=== PATIENT | female | born 1990 | race Caucasian/White ===

== ENCOUNTER → 2016-03-30 | Outpatient (CLI) | payer BC ==
[2016-03-30 19:31] LABS: BASO # 0.1 K/mm3 (0.0-0.2); BASO % 0.7 % (0.0-1.0); EOS # 0.1 K/mm3 (0.0-0.50); LARGE UNSTAINED CELL # 0.1 K/mm3 (0.0-0.4); LARGE UNSTAINED CELL % 0.8 % (0.0-4.0); LYMPH # 1.7 K/mm3 (1.5-6.5); LYMPH % 13.3 % (24.0-44.0); MEAN CORPUSCULAR HEMOGLOBIN 29.3 pg (27.0-33.0); MEAN CORPUSCULAR VOLUME 86.3 fl (80.0-96.0); MONO # 0.6 K/mm3 (0.0-0.8); MONO % 5.1 % (0.0-5.0); NEUTROPHILS # 9.6 K/mm3 (1.8-7.7); NEUTROPHILS % 79.1 % (36.0-66.0); PLATELET COUNT, AUTOMATED 290 k/mm3 (150-450); RED CELL DISTRIBUTION WIDTH 13.6 % (11.5-14.5); WHITE BLOOD COUNT 12.1 K/mm3 (4.0-10.0)
[2016-03-31 08:40] LABS: CONTROL LINE INT CTR LINE PRESENT; HIV SCRN NEGATIVE (NEGATIVE); HIV SCRN1 NEGATIVE (NEGATIVE)
[2016-04-01 10:01] LABS: HBsAg Prenatal NEGATIVE (NEGATIVE)
== END ==
LOC: M SMT 13:47
PROVIDERS: ATTEND Advanced Practice Midwife
DX: Z34.81 Encounter for supervision of other normal pregnancy, first trimester (principal)

== ENCOUNTER → 2016-04-27 | Outpatient (REF) | payer BC | LOC: M LAB REF 16:52 | PROVIDERS: ATTEND Advanced Practice Midwife | DX: Z34.82 Encounter for supervision of other normal pregnancy, second trimester (principal) ==

== ENCOUNTER → 2016-05-25 | Outpatient (REF) | payer BC | LOC: M LAB REF 17:26 | PROVIDERS: ATTEND Obstetrics & Gynecology | DX: Z34.82 Encounter for supervision of other normal pregnancy, second trimester (principal) ==

== ENCOUNTER → 2016-09-14 | Outpatient (REF) | payer BC ==
[~2016-09-14] MED LIST: ACET50TA PO; MOTR200T44 PO; PRENTAB9 PO
== END ==
LOC: M LAB REF 17:36
PROVIDERS: ATTEND Advanced Practice Midwife
DX: Z34.83 Encounter for supervision of other normal pregnancy, third trimester (principal)

== ENCOUNTER 2016-10-09 09:00 | Inpatient (IN) | payer BC ==
[~2016-10-09] VITALS: Ht 154.9 cm; Wt 58.0 kg
[2016-10-09] VITALS (10 sets, daily range): BP systolic 102–162; BP diastolic 55–74
[2016-10-09] MEDS ORDERED: PRENTAB9 PO (09:08)
[2016-10-09] MEDS ORDERED: LACTATED RINGER'S 1000 ML IV STA (09:40)
[2016-10-09] MEDS ORDERED: PENICILLIN G POTASSIUM IV 5 MU in D5W MINI-BAG PLUS 100 ML IV STA (09:40)
[2016-10-09] MEDS ORDERED: LR 1,000 ML IV SCH (09:45)
[2016-10-09 10:16] LABS: MEAN CORPUSCULAR HEMOGLOBIN 23.5 pg (27.0-33.0); MEAN CORPUSCULAR VOLUME 73.6 fl (80.0-96.0); RED CELL DISTRIBUTION WIDTH 14.1 % (11.5-14.5)
[2016-10-09] MEDS ORDERED: ANUSOL HC CREAM 30GM TOP PRN (12:30)
[2016-10-09] MEDS ORDERED: DIBUCAINE 1% OINTMENT 30GM TOP PRN (12:30)
[2016-10-09] MEDS ORDERED: ACETAMINOPHEN 500 MG TAB PO PRN (12:30)
[2016-10-09] MEDS ORDERED: MEASLES,MUMPS,RUBELLA VACCINE INJ (MMR-II) (90707) SC SCH (12:30)
[2016-10-09] MEDS ORDERED: MOM 30ML SUSPENSION UDC PO PRN (12:30)
[2016-10-09] MEDS ORDERED: OXYTOCIN INJ 10 UNITS/ML VIAL (J2590) IM ONE (12:30)
[2016-10-09] MEDS ORDERED: IBUPROFEN 800 MG TAB PO PRN (12:30)
[2016-10-09] MEDS ORDERED: DOCUSATE SODIUM 100 MG CAP PO PRN (12:30)
[2016-10-09] MEDS ORDERED: RHOGAM 300 MCG (1500 IU) INJ (J2790) IM SCH (12:30)
[2016-10-09] MEDS: METHYLERGONOVINE MALEATE 0.2 MG TAB PO SCH ×2 (12:36→18:21)
[2016-10-09] MEDS ORDERED: LIDOCAINE 1% MDV INJ 50 ML VIAL INFIL ONE (13:00)
[2016-10-09] MEDS ORDERED: PENICILLIN G POTASSIUM IV 2.5 MU in D5W 100 ML IV SCH (13:45)
--- NOTE | 2016-10-09 16:54 | HPE ---
DATE OF ADMISSION: 10/09/2016 HISTORY OF PRESENT ILLNESS: A 26-year-old 1, estimated date of delivery 10/08/2016, presents at 40 weeks 1 day with onset of contractions last night and spontaneous rupture of membranes clear fluid this morning at 0800. Fetus is active. Light bloody show. Last normal menstrual period 01/02/2016, for estimated date of delivery (KENROY) of 10/08/2016. Sonogram at 12 weeks confirmed her date. Anatomy scan within normal limits. Group B strep bacteriuria in early . Group B strep culture at 36 weeks was negative. Appropriate care. ALLERGIES: No known drug allergies. MEDICAL-SURGICAL: Noncontributory. The patient was tested for von Willebrand's at age [age] and was found to be negative. FAMILY HISTORY: von Willebrand's. SOCIAL HISTORY: . Father of the baby and family supportive. Denies alcohol, tobacco, drugs or abuse. OBJECTIVE: Prepregnancy weight 115, total weight gain 17 pounds. O positive, antibody negative, rubella immune. VDRL, hepatitis B, hepatitis C, HIV, gonorrhea and Chlamydia all negative. Group B strep bacteriuria treated during early . She declined genetic screening. 1-hour glucose 91, and group B strep culture was then negative at 36 weeks. Vital signs are stable, very uncomfortable. heart 145, moderate variability with accelerations. Contractions 2-3 minutes apart for 60 seconds and strong. Clear fluid draining per vagina. Sterile vaginal exam 7 cm, 90% effaced, +1 station, cephalic. ASSESSMENT: Primipara at term active labor. PLAN: Admit. The patient declines intravenous (IV) access unless an emergency. Also declines group B strep prophylaxis. Counseled about the risks of untreated group B strep to and probable pediatric evaluation of infant requiring delayed discharge. Patient and spouse verbalized understanding and decline IV access and group B strep prophylaxis. Anticipate normal spontaneous vaginal .
[2016-10-10] MEDS: METHYLERGONOVINE MALEATE 0.2 MG TAB PO SCH ×2 (01:12→07:36)
[2016-10-10 05:35] VITALS: BP 119/73
[2016-10-10] MEDS: PRENATAL VITAMINS CHEWABLE TABLET PO SCH (07:36)
[2016-10-10] MEDS ORDERED: METHYLERGONOVINE MALEATE 0.2 MG TAB PO PRN (12:30)
--- NOTE | 2016-10-10 14:33 | DN ---
DATE: 10/09/2016 Onset of labor, about 11:10 a.m. on 10/08/2016. Spontaneous rupture of membranes, clear fluid on 10/09/2016 at 0800 hours. Fully dilated at 1051 hours. Viable female delivered KERRIE, compound, with posterior right arm at 1133. Spontaneous respirations with stimulation. Transitioned on maternal abdomen. Cord doubly clamped and cut once pulsations ceased. scores of 8 and 8. Placenta Dalal intact with three-vessel cord and trailing membranes at 1140. Fundus firmed with massage and intramuscular Pitocin for continued bleeding with good effect. Estimated blood loss 500 mL. Second-degree perineal laceration with left sulcus and left labial extension repaired after infiltration with lidocaine. weight is pending. Sponge, sharp and instrument count correct.
[2016-10-10 17:54] VITALS: BP 102/64
[2016-10-11 05:35] VITALS: BP 110/73
[2016-10-11] MEDS ORDERED: LIDOCAINE 1% MDV INJ 50 ML VIAL INFIL SCH (08:15)
[2016-10-11] MEDS ORDERED: ACET50TA PO (08:50)
[2016-10-11] MEDS ORDERED: MOTR200T44 PO (08:50)
[2016-10-11] MEDS: PRENATAL VITAMINS CHEWABLE TABLET PO SCH (09:00)
[2016-10-11] MEDS ORDERED: OXYTOCIN INJ 10 UNITS/ML VIAL (J2590) As Ordered ONE (09:13)
== END 2016-10-11 13:55 | disposition home or self-care (01) | DRG 560 ==
LOC: M LDO 09:00 → M LDI 09:34 → M OBS 14:46
PROVIDERS: ADMIT Advanced Practice Midwife; ATTEND Advanced Practice Midwife
PROC: 10E0XZZ Delivery of Products of Conception, External Approach (ICD-10-PCS; principal; 2016-10-09)
PROC: 0HQ9XZZ Repair Perineum Skin, External Approach (ICD-10-PCS; 2016-10-09)
DX: O48.0 Post-term pregnancy (principal); O32.6XX0 Maternal care for compound presentation, not applicable or unspecified; Z37.0 Single live birth; Z3A.40 40 weeks gestation of pregnancy; O70.1 Second degree perineal laceration during delivery